=== PATIENT | male | born 1950 | race Caucasian/White ===

== ENCOUNTER 2021-03-14 12:53 | Outpatient (CLI) | payer MEDICARE, SELFPAY | END 2021-03-14 12:54 | disposition home or self-care (01) | PROVIDERS: PCP Family Medicine | DX: H90.3 Sensorineural hearing loss, bilateral (principal) | CPT/HCPCS: 92557; 92567 ==

== ENCOUNTER 2024-09-09 02:10 | Day surgery (SDC) | payer MEDICARE, SELFPAY ==
[2024-08-29 08:24] VITALS: BMI 29.6
--- OUTSIDE RECORDS SUMMARY | 2024-09-09 02:13 | XMS_ITS | Clinical Summary ---
Author Organization [facility] Address [address] [place] [address] Care Team Providers Care Laborer Driver Name Role Phone Janina Ponce MD Primary Care Provider [phone] Source Comments [facility],non-owned Affiliates and Associated Physician Practices is amultiple site organization consisting of ambulatory clinics and hospital sitesin [place], [place], [place] and [place]. This disclosure is being madepursuant to the Care Everywhere program and may not contain all information available regarding this patient. Last updated 18.[facility] Allergies Active Allergy Reactions Criticality Noted Date Comments Codeine Other Low 01/18/2012 Not speficied Ezetimibe Myalgias 11/08/2020 Penicillin G Other Low 01/18/2012 Not specified Medications * Be aware that medications may not be up to date on this document. Alwaysverify current medications with the patient. lidocaine (LIDODERM) 5 % patch APPLY 1 PATCH TRANSDERMALLYEVERY 24 HOURS *PAR MFR* 30 patch 5 02/09/20 18 Active omeprazole (PRILOSEC) 40 MG capsule 02/20/20 18 Active oxybutynin CR 24hr (DITROPAN-XL) 10 MG tablet 03/20/20 18 Active pravastatin (PRAVACHOL) 40 MG tablet 02/20/20 18 Active terazosin (HYTRIN) 10 MG capsule 02/20/20 18 Active celecoxib (CELEBREX) 200 MG capsule TAKE 1 CAPSULE DAILY 60 capsule 5 07/18/19 19 Active gabapentin (NEURONTIN) 300 MG capsule Take 1 capsule by mouth 3 times daily 270 capsule 5 06/16/19 20 Active lidocaine (LIDODERM) 5 % patch Apply 1 patch to skin once daily 30 patch 5 06/16/19 20 Active Active Problems Problem Noted Date Diagnosed Date Closed nondisplaced fracture of body of right ca lcaneus 04/01/2018 Osteoarthritis 05/11/2014 Closed fracture of right foot 01/18/2012 Social History Tobacco Use Types Packs/Day Years Used Date Smoking Tobacco: Former Smokeless Tobacco: Never Alcohol Use Standard Drinks/Week Comments Not Asked 0 (1 standard drink = 0.6 oz pur e alcohol) PHQ-2 Answer Date Recorded Patient Health Questionnaire-2 Score 0 04/05/2023 Sex and Gender Information Value Date Recorded Sex Assigned at Not on file Legal Sex Male 5:26 PM [employer] Gender Identity Not on file Sexual Orientation Not on file Last Filed Vital Signs Vital Sign Reading Time Taken Comments Blood Pressure - - Pulse - - Temperature 36.7 C (98 F) 02/21/2016 1:06 PM CDT Respiratory Rate - - Oxygen Saturation - - Inhaled Oxygen Concentration - - Weight 86.2 kg (190 lb) 08/23/2021 2:26 PM CDT Height 175.3 cm (5' 9 ) 08/23/2021 2:26 PM CDT Body Mass Index 28.06 08/23/2021 2:26 PM CDT Plan of Treatment Health Maintenance Due Date Last Done Comments COLOGUARD (AGES 45-75) - COLON CA SCREENING 1952 COLON MONITORING 1952 COLONOSCOPY - COLON CA SCREENING 1952 CT COLONOGRAPHY - COLON CA SCREENING 1952 Colorectal Cancer Screening 1952 FIT - COLON CA SCREENING 1952 FLEX SIG - COLON CA SCREENING 1952 HEPATITIS C SCREENING 12/24/1970 DTAP/TDAP/TD VACCINES (1 - Tdap) 12/29/1971 PNEUMOCOCCAL VACCINE 50+ (1 of 1 - PCV) 2002 ZOSTER VACCINE (1 of 2) 2002 AAA SCREENING 2017 COVID-19 VACCINE (2 - season) 2024 07/13/2020 DEPRESSION SCREENING 05/21/2024 04/05/2023 MEDICARE AWV CALENDAR YEAR 2024 INFLUENZA VACCINE (Season Ended) 2025 02/07/2022, 04/26/2015, 04/02/2014, Additional history exists Respiratory Syncytial Virus (RSV) Vaccine Pt: or over 60 yrs (1 - 1-dose 75+ series) 12/29/2027 HEPATITIS B VACCINE Aged Out No longe r eligible based on patient's age to complete this topic HIB VACCINE Aged Out No longer eligi ble based on patient's age to complete this topic HPV VACCINE Aged Out No longer eligi ble based on patient's age to complete this topic MENINGOCOCCAL (Group B) VACCINE SHARED DECISION-MAKING Aged Out No longer eligible based on patient's age to complete this topic MENINGOCOCCAL GROUPS A/C/Y/W VACCINE Aged Out No longer eligible based on patient's age to complete this topic Goals Goal Patient Goal Type Associated Problems Recent Progress Patient-Stated? Author Mobility General Willow Tafoya RN Note: Expected end date: 05/20/21 The goal is to maintain or improve your mobility at the optimum level for you. Interventions: Insurance [employer] MED[employer]ARE ADV [employer] MED[employer]ARE ADV [employer] Care Teams Laborer Driver Relationship Specialty Start Date End Date Janina Ponce MD [address] [place] [address] [place] [id number] PCP - General 11/08/20
--- OUTSIDE RECORDS SUMMARY | 2024-09-09 02:13 | XMS_ITS | Continuity of Care Document ---
Author Organization [facility] [place] [place] Address [address] [place] [address] Phone Care Team Providers Care Clinical Transformation Specialist Name Role Phone Mikey Marsh Unavailable Unavailable Procedures Procedure Date Post-op Follow-up Visit Post-op Follow-up Visit Remove Cataract, Insert Lens Presbyopia Correcting IOL [facility] Office/outpatient Visit, Est Office Consultation Advance Directives Directive Yes / No Effective Date File Name No Information Encounters Encounter Description Practice Location Reason(s) For Visit Diagnoses Date Provider Providers Copied on Encounter [facility], [address] [place] [address] [address], [place], [place], [id number], tel:[phone] [facility] No Information 9201 0 Doisy Edrobina. [address] [place], [place] [address] , [address], [place], [place], [facility], [place]. tel:[phone] [facility], [id number] [place] [address] [address], [place], [place], [id number], [place] tel:[phone] [facility] No Information 0-201 0 Hatfield OD Jonathan. [address] , [address], [place], [place], [facility], [place]. tel:[phone] [facility], [address] [place] [address] [address], [place], [place], [id number], [place] tel:[phone] [facility] No Information Nov-0 9-201 0 Maximo Jensen. [facility] [facility] [address] , [address], [place], [place], [facility], [place]. tel:[phone] [facility], [address], [place], [place], [id number], [place] tel:[phone] [facility] No Information Nov-0 2-201 0 Maximo Jensen. [address] , [address], [place], [place], [facility], [place]. tel:[phone] Referring Provider: Mikey Hernandez, [address] [place], [place] [address], [place], [facility]. tel:[phone] [facility], [address] [place] [address] [address], [place], [place], [id number], [place] tel:[phone] [facility] No Information Oct-2 9-201 0 Maximo Jensen. [address] [place] [address] [address] , [address], [place], [facility], [place]. tel:[phone] Office/outpati ent Visit, Est [facility], [address] [place] [address] [address], [place], [place], [id number], [place] tel:[phone] [facility] No Information Oct-2 0-200 9 Krishnasamy Prudencio. [address] [place] [address] [address], [place], [facility], [place]. tel:[phone] Office Consultation [facility], [address] [place] [address] [address], [place], [place], [id number], [place] tel:[phone] [facility] No Information Apr-2 0-200 9 Krishnasamy Prudencio. [address] [place] [address], [place], [facility], [place]. tel:[phone] Referring Provider: Mireya Moseley MD, [address], [place], [address]. tel:[phone] Family History Family Member Type Diagnosis Age At Onset No Information Payers Payer name Insurance type Covered green party ID Authoriza tion(s) No Information Social History Type Description Quantity Date Captured Comments Sex Male Smoking Status No Information Chief Complaint And Reason For Visit No Information Reason For Referral Reason For Referral No Information History Of Present Illness Encounter Date Complaint History Of Prese nt Illness No Information Functional Status Date Functional Assessmen t No Information Instructions Date Instruction Additional Infor mation No Information Assessments Type Assessment Date No Information Patient Care Teams Name Effective Dates (start - stop) Status Members No Information
[2024-09-09 10:11] VITALS: BP 183/79; PULSE 64; RESP 18; TEMP 36.9; O2SAT 98
[2024-09-09] MEDS: LACTATED RINGERS 1,000 ML 150 ML IV CONT (10:22)
--- NOTE | 2024-09-09 10:39 | P.PNAN_ITS ---
Anes - Initial Pre Proc Eval Procedure: Operation Date: 09/09/24 11:30 Proposed Procedures p Screening Colonoscopy - Robson Alex MD Date/Time: 09/09/24 10:39 Surgeon: Robson Alex MD Pre Op Diagnosis: screening colon Patient Data Age: 73 Gender: M Height: 1.75 m Weight: 90.7 kg Last Vital Signs Temp 36.9 C 09/09/24 10:11 Pulse 64 09/09/24 10:11 Resp 18 09/09/24 10:11 BP 183/79 H 09/09/24 10:11 Pulse Ox 98 09/09/24 10:11 O2 Del Method Room Air 09/09/24 10:11 Allergies Allergy/AdvReac Type Severity Reaction Status Date / Time Penicillins Allergy Intermediate Rash Verified 09/09/24 10:10 codeine AdvReac Intermediate Other Verified 09/09/24 10:10 Home Medications ?Medication ?Instructions ?Recorded ?Confirmed ?Type cholecalciferol (vitamin D3) 25 1,000 unit PO DAILY 08/29/24 09/09/24 History mcg (1,000 unit) capsule omega 6-meu-dlc-fish oil 300 1 cap PO DAILY 08/29/24 09/09/24 History mg-1,000 mg capsule,delayed release (Fish Oil) omeprazole 40 mg capsule,delayed 40 mg PO DAILY 08/29/24 09/09/24 History release oxybutynin 10 mg BYMOUTH DAILY 08/29/24 09/09/24 History pravastatin 40 mg tablet 40 mg PO DAILY 08/29/24 09/09/24 History Patient hx anesthesia problems: none Family hx anesthesia problems: none Results Review: All pre-operative results and documents have been reviewed as part of the pre- operative evaluation. [facility] Past Medical History Medical History (Updated 09/09/24 @ 10:39 by Bennie Beasley MD) Prostate CA Social History Social History Smoking packs per day: 1 Smoking cigarettes per day: 20.0 Smoking status: Former smoker Tobacco type: cigarettes Alcohol intake: current Drinks per week: 2 Living arrangements: with family Spiritual care concerns: No Anes - Eval Final PreProcedure Day of Procedure 09/09/24 10:39 Patient weight: overweight Heart: regular rate and rhythm Lungs: clear to auscultation Airway: Mallampati scale class II Neurological: alert and oriented Last oral intake: >/= 8 hours ASA classification: III Emergent: no Anesthetic plan: proceed Anesthesia type and monitoring: general GIVS and standard monitoring Results Review: All pre-operative results and documents have been reviewed as part of the pre- operative evaluation. Informed Consent: The patient's anesthetic plan and its attendant risks and benefits were discussed with the patient/family/POA. Questions were solicited and answers provided to the satisfaction of the patient/family/POA.
--- NOTE | 2024-09-09 11:27 | PM.IMHP ---
H&P: HPI History of Present Illness Date/Time: 09/09/24 11:27 Chief Complaint: Family history of colon cancer Narrative: This patient has family history of colorectal cancer. his mother had colorectal cancer at 60 years old, and his daughter had it when she was 42. The patient was found to have polyps on previous colonoscopy. Review of Systems Review of Systems: All systems reviewed & are unremarkable except as noted in HPI and below PMFSH Past Medical History Medical History (Updated 09/09/24 @ 11:29 by Robson Alex MD) Prostate CA Social History Social History Smoking packs per day: 1 Smoking cigarettes per day: 20.0 Smoking status: Former smoker Tobacco type: cigarettes Alcohol intake: current Drinks per week: 2 Living arrangements: with family Spiritual care concerns: No Meds Home Medications and Allergies Home Medications ?Medication ?Instructions ?Recorded ?Confirmed ?Type cholecalciferol (vitamin D3) 25 1,000 unit PO DAILY 08/29/24 09/09/24 History mcg (1,000 unit) capsule omega 4-daa-hhu-fish oil 300 1 cap PO DAILY 08/29/24 09/09/24 History mg-1,000 mg capsule,delayed release (Fish Oil) omeprazole 40 mg capsule,delayed 40 mg PO DAILY 08/29/24 09/09/24 History release oxybutynin 10 mg BYMOUTH DAILY 08/29/24 09/09/24 History pravastatin 40 mg tablet 40 mg PO DAILY 08/29/24 09/09/24 History Allergies Allergy/AdvReac Type Severity Reaction Status Date / Time Penicillins Allergy Intermediate Rash Verified 09/09/24 10:10 codeine AdvReac Intermediate Other Verified 09/09/24 10:10 Vital Signs Vital Signs - 24 hr 09/09/24 10:11 Temperature 98.5 F Pulse Rate 64 Respiratory Rate 18 Blood Pressure 183/79 H Pulse Oximetry 98 Oxygen Delivery Room Air Exam Const: General: cooperative and healthy appearing Resp: Effort & Inspection: normal respiratory effort and able to speak in complete sentences Auscultation: clear to auscultation bilaterally Cardio: Rate: regular rate Rhythm: regular rhythm GI: Inspection: normal to inspection GI Palp: No No hepatosplenomegaly present Auscultation: normal bowel sounds Rectal Exam: deferred Skin: General skin exam: normal color Psych: Appearance: grossly normal Mental Status: mental status grossly normal Assessment and Plan Assessment and plan (1) Family history of colon cancer: Code(s): Z80.0 - Family history of malignant neoplasm of digestive organs Status: Acute Assessment and Plan: The patient is deemed a good candidate for the procedure. Consent signed. Will proceed.
[2024-09-09 12:21] VITALS: BP 124/73; PULSE 52; RESP 17; O2SAT 94
[2024-09-09 12:31] VITALS: BP 122/70; PULSE 52; RESP 22; O2SAT 94
[2024-09-09 12:41] VITALS: BP 159/81; PULSE 52; RESP 18; O2SAT 97
--- NOTE | 2024-09-09 13:12 | SUR.PHASEII ---
PATIENT TRANSPORTED TO EXIT VIA WHEELCHAIR WHEN THIS RN NOTED BILATERAL CHEST QUIVERING, LEFT SIDE > RIGHT SIDE. PATIENT DENIED CHEST PAIN, SOB. PATIENT RETURNED TO GI LAB; DR MCNAMARA SAW PATIENT AND SAID IT WAS PROBABLY DUE TO THE PREP. PATIENT INSTRUCTED TO EAT AND DRINK WELL TODAY AND TO SEEK MEDICAL ATTENTION IF CHEST QUIVERING PERSISTS OR IF THER SYMPTOMS LIKE SOB, CHEST PAIN DEVELOP.
== END 2024-09-09 12:58 | disposition home or self-care (01) ==
PROVIDERS: PCP Family Medicine; Referring Provider Nurse Practitioner; Visit Provider Internal Medicine Gastroenterology
PROC: 0DJD8ZZ Inspection of Lower Intestinal Tract, Via Natural or Artificial Opening Endoscopic (ICD-10-PCS; CPT 45378; principal; 2024-09-09 11:30)
DX: Z12.11 Encounter for screening for malignant neoplasm of colon (principal); D12.0 Benign neoplasm of cecum; D12.2 Benign neoplasm of ascending colon; D12.3 Benign neoplasm of transverse colon; D12.4 Benign neoplasm of descending colon; D12.5 Benign neoplasm of sigmoid colon; K55.20 Angiodysplasia of colon without hemorrhage; Z87.891 Personal history of nicotine dependence; Z80.0 Family history of malignant neoplasm of digestive organs; Z85.46 Personal history of malignant neoplasm of prostate
CPT/HCPCS: 45385; 88305; J2003; J2704; J7120